=== PATIENT | female | born 1980 | race Caucasian/White ===

== ENCOUNTER 2016-09-13 23:34 | Emergency (ER) | payer MEDICAID ==
[~2016-09-13] VITALS: Ht 144.8 cm; Wt 61.0 kg
[2016-09-14] MEDS ORDERED: TETANUS, DIPHTHERIA, PERTUSSIS VAC/PF 0.5ML (>7YR OLD) IM ONE (03:00)
[2016-09-14] MEDS ORDERED: IBUPROFEN 600MG TABLET PO ONE (03:00)
[2016-09-14] MEDS ORDERED: BACITRACIN ZINC OINT UDPKT TOP ONE (03:00)
[2016-09-14 04:53] VITALS: BP 122/70
== END 2016-09-14 04:54 | disposition home or self-care (01) ==
LOC: ER 09-14 01:16
DX: S61.411A Laceration without foreign body of right hand, initial encounter (principal); W25.XXXA Contact with sharp glass, initial encounter; Y92.010 Kitchen of single-family (private) house as the place of occurrence of the external cause
CPT/HCPCS: 73130; 81025; 90471; 90715; 99284